=== PATIENT | female | born 1980 | race Caucasian/White ===

== ENCOUNTER 2022-02-16 22:02 | Emergency (ER) | payer OTHER ==
[~2022-02-16] VITALS: Ht 157.5 cm; Wt 108.9 kg
[2022-02-16 22:08] VITALS: BP 126/78
[2022-02-16] MEDS ORDERED: CEPH-588 PO (22:29)
[2022-02-16 22:50] VITALS: BP 126/78
== END 2022-02-16 22:46 | disposition home or self-care (01) ==
LOC: MED 22:02
DX: L03.211 Cellulitis of face (principal); Z79.899 Other long term (current) drug therapy
CPT/HCPCS: 99283